=== PATIENT | male | born 1955 ===

== ENCOUNTER 2017-06-10 17:30 | Inpatient (IN) | payer MEDICARE, OTHER ==
[2017-06-10 18:13] VITALS: BMI 28.8
[2017-06-10] MEDS ORDERED: Morphine 4 mg/ml ISec IVP STA ×2 (19:02→23:28)
[2017-06-10 19:40] LABS: ALB/GLOB RATIO 1.5 (1.1-1.8)
[2017-06-10 19:45] LABS: BASO # 0.01 K/mm3 (0.0-2.0); BASO % 0.1 % (0.0-3.0); EOS # 0.1 (0.0-0.7); GRAN # 8.23 (1.4-6.5); GRAN % 77.4 % (50.0-68.0); HEMOGLOBIN 13.1 g/dL (14.0-18.0); LYMPH # 1.6 (1.2-3.4); LYMPH % 15.3 % (22.0-35.0); MEAN CORPUSCULAR HEMOGLOBIN 30.3 pg (25.0-35.0); MEAN CORPUSCULAR HGB CONC 34.4 g/dl (31.0-37.0); MEAN PLATELET VOLUME 10.5 fl (7.0-11.0); MONO # 0.7 (0.1-0.6); MONO % 6.2 % (1.0-6.0); RBC 4.33 10^6/uL (3.5-6.1); RED CELL DISTRIBUTION WIDTH 13.1 % (11.5-14.5); WHITE BLOOD COUNT 10.6 10^3/ul (4.5-11.0)
[2017-06-10 19:48] LABS: ALBUMIN 4.3 g/dL (3.0-4.8); ALT/SGPT 36 U/L (7-56); AST/SGOT 35 U/L (17-59); BLOOD UREA NITROGEN 15 mg/dL (7-21); CALCIUM 9.3 mg/dL (8.4-10.5); GFR AFRICAN-AMERICAN > 60; GFR NON-AFRICAN AMERICAN > 60
[2017-06-10 20:25] LABS: PROTHROMBIN TIME 48.2 SECONDS (9.4-12.5)
[2017-06-10 20:28] LABS: INR 4.11 (0.93-1.08)
[2017-06-10 20:29] LABS: PARTIAL THROMBOPLASTIN TIME 50.9 Seconds (25.1-36.5)
--- NOTE | 2017-06-10 23:28 | ED PDOC ---
Arrival/HPI - General Chief Complaint: Lower Extremity Problem/Injury Time Seen by Provider: 06/10/17 18:08 Historian: Patient - History of Present Illness Narrative History of Present Illness (Text): 06/11/17 01:20 62yr old male on coumadin presents today with a 3 day history of increasing right leg pain and swelling. Patient states he was power washing 3 days ago and when he finished power washing he went inside the house and noticed a slight cramping sensation in the right leg. Patient states yesterday she noticed a small amount of swelling to the knee and some increasing pain over the anterior thigh. Patient states today the swelling has increased and the pain has become even more severe. Patient denies numbness weakness or tingling in the extremity. Patient states he is unable to ambulate and has severe limited range of motion of the right leg from the knee to the hip. Patient states yesterday he was having lots of pain but was able to move the leg at the hip joint. Patient states today he feels as if he can't even move the hip at all. Patient states he gets a shooting pain from the knee all the way up into the thigh and groin. Patient states that her right thigh feels extremely tight and extremely swollen. Patient states he has now noticed ecchymosis along the medial aspect of the thigh. Symptom Onset: Gradual Symptom Course: Worsening Quality: Aching, Stabbing, Throbbing Severity Level: 8 Past Medical History - Provider Review Nursing Documentation Reviewed: Yes - Travel History Have you recently traveled outside [place] w/in the past 3 mons?: No - Infectious Disease Hx of Infectious Diseases: None - Tetanus Immunization Tetanus Immunization: Unknown - Cardiac Hx Cardiac Disorders: Yes (h/o valve replacement ) Hx Hypertension: Yes Other/Comment: Open heart surgery. Cardiac cath with stent placement. Valve replacement - Pulmonary Hx Respiratory Disorders: No - Neurological HX Cerebrovascular Accident: Yes - HEENT Hx HEENT Disorder: No - Renal Hx Renal Disorder: No - Endocrine/Metabolic Hx Endocrine Disorders: No - Hematological/Oncological Hx Blood Disorders: No Hx Blood Transfusions: No - Integumentary Hx Dermatological Disorder: No - Musculoskeletal/Rheumatological Hx Musculoskeletal Disorders: Yes (MILD L SIDED WEAKNESS) - Genitourinary/Gynecological Hx Genitourinary Disorders: No - Psychiatric Hx Psychophysiologic Disorder: No Hx Emotional Abuse: No Hx Physical Abuse: No Hx Substance Use: No - Surgical History Hx Cardiac Catheterization: Yes Hx Open Heart Surgery: Yes - Anesthesia Hx Anesthesia: Yes Hx Anesthesia Reactions: No Hx Malignant Hyperthermia: No - Suicidal Assessment Feels Threatened In Home Enviroment: No Family/Social History - Physician Review Nursing Documentation Reviewed: Yes Family/Social History: Unknown Family HX Smoking Status: Former Smoker Hx Alcohol Use: No Hx Substance Use: No Allergies/Home Meds Allergies/Adverse Reactions: Allergies No Known Allergies Allergy (Verified 04/18/16 23:43) Home Medications: Home Meds Medication Instructions Recorded Confirmed Bisoprolol Fumarate [Zebeta] 10 mg PO QAM 06/15/13 07/06/13 Enalapril Maleate 2.5 mg PO QAM 06/15/13 07/06/13 FLUoxetine [Prozac] 20 mg PO QAM 06/15/13 07/06/13 Febuxostat [Uloric] 40 mg PO DAILY 06/15/13 07/06/13 Fexofenadine HCl [Lulu NF] 180 mg PO QAM 06/15/13 07/06/13 Simvastatin 20 mg PO DAILY 06/15/13 07/06/13 Warfarin Sodium [Coumadin] 4 mg PO Q48H 06/15/13 07/06/13 Review of Systems - Review of Systems Constitutional: absent: Fatigue, Fevers Respiratory: absent: SOB, Cough Cardiovascular: absent: Chest Pain, Palpitations Gastrointestinal: absent: Abdominal Pain, Nausea, Vomiting Genitourinary Male: absent: Dysuria Musculoskeletal: Arthralgias. absent: Back Pain, Neck Pain Skin: absent: Rash, Pruritis Neurological: absent: Headache, Dizziness Psychiatric: absent: Anxiety, Depression, Suicidal Ideation Physical Exam Vital Signs Reviewed: Yes Vital Signs Temp Pulse Resp BP Pulse Ox 06/10/17 18:10 98.0 F 64 18 165/85 H 96 Temperature: Afebrile Blood Pressure: Hypertensive Pulse: Regular Respiratory Rate: Normal Appearance: Positive for: Well-Appearing, Non-Toxic, Uncomfortable Pain Distress: Mild Mental Status: Positive for: Alert and Oriented X 3 - Systems Exam Head: Present: Atraumatic Mouth: Present: Moist Mucous Membranes Respiratory/Chest: Present: Clear to Auscultation Cardiovascular: Present: Regular Rate and Rhythm Abdomen: No: Tenderness, Rebound, Guarding Back: Present: Normal Inspection Upper Extremity: Present: Normal ROM Lower Extremity: Present: NORMAL PULSES, Tenderness (right thigh; there is severe edema and tenderness over the entire right thigh, greatest over the anterior aspect of the thigh. + ecchymosis noted along the medial aspect of the thigh; limited flexion of the hip. pain with flexion of the knee. edema extends for groin/hip to proximal knee; no calf tenderness; sensation and distal pulses intact; cap refill <2. ), Swelling, Neurovascularly Intact, Capillary Refill < 2 s. No: CALF TENDERNESS, Normal ROM, Erythema, Temperature Abnormalties Neurological: Present: GCS=15, Speech Normal Skin: Present: Warm, Dry, Normal Color. No: Rashes Psychiatric: Present: Alert, Oriented x 3 Medical Decision Making ED Course and Treatment: 06/10/17 23:28 62yr old male with right thigh pain and swelling x 3 days. pt with significant pain and swelling to right thigh. neurovascularly intact. cbc; wnl cmp; wnl INR: 4.11 pt seen and evaluated by psychiatry resident: dr garcía. MRI of right leg: FINDINGS: There is diffuse subcutaneous and intermuscular edema throughout the right anteromedial thigh. There is pronounced diffuse edema and enlargement of the right vastus medialis muscle. Within the midportion of the muscle belly, there are multiple adjacent loculated complex fluid collections with internal fluid-fluid levels. In total, these collections measure 4.1 x 7.3 x 11.9 cm. No other focal fluid collection or mass. No visualized tendinous avulsion. No acute right femoral fracture. IMPRESSION: Multiple adjacent loculated complex fluid collections within the midportion of the muscle belly of the right vastus medialis with extensive surrounding intramuscular and soft tissue edema. Differential diagnosis includes abscesses and hematomas. pt was seen and evaluated by dr. christianson; due to bleeding and increasing pain/ swelling and possibility of development of compartment syndrome; dr. christianson states we will given vitamin k now. hold off on FFP and recheck INR in the Am. 10mg vitamin k ordered IV. case discussed with dr. arshad in depth; will consult dr. scales and Dr. Thorne. all results discussed in depth with patient; discussed risks and benefits of vitamin k in depth with patient. all aspects of this case were discussed the attending of record. impression; hematoma, leg admit to tele - Lab Interpretations Lab Results: 06/10/17 19:10 06/10/17 19:10 Lab Results 06/10/17 19:10: PT 48.2 H, INR 4.11 H*, APTT 50.9 H 06/10/17 19:10: WBC 10.6 D, RBC 4.33, Hgb 13.1 L, Hct 38.1 L, MCV 88.0, MCH 30.3, MCHC 34.4, RDW 13.1, Plt Count 214, MPV 10.5, Gran % 77.4 H, Lymph % (Auto ) 15.3 L, Petroleum % (Auto) 6.2 H, Eos % (Auto) 1.0 L, Baso % (Auto) 0.1, Gran # 8.23 H, Lymph # (Auto) 1.6, Petroleum # (Auto) 0.7 H, Eos # (Auto) 0.1, Baso # (Auto ) 0.01 06/10/17 19:10: Sodium 140, Potassium 4.5, Chloride 98, Carbon Dioxide 29, Anion Gap 17, BUN 15, Creatinine 0.8, Est GFR ( Amer) > 60, Est GFR (Non- Af Amer) > 60, Random Glucose 115 H, Calcium 9.3, Total Bilirubin 0.3, AST 35, ALT 36, Alkaline Phosphatase 68, Total Protein 7.1, Albumin 4.3, Globulin 2.8, Albumin/Globulin Ratio 1.5 - RAD Interpretation Radiology Orders: 06/10/17 19:01 DUPLEX LOWER EXTRM VEIN RIGHT [US] Stat 06/10/17 19:04 LOWER EXT OTH THN JNT W/O RT [MRI] Stat 06/10/17 19:07 CHEST PORTABLE [RAD] Stat - Medication Orders Current Medication Orders: Discontinued Medications Phytonadione 10 mg/ Sodium (Chloride) 51 mls @ 100 mls/hr IV ONCE ONE Stop: 06/11/17 01:22 Last Admin: 06/11/17 01:28 Dose: 100 mls/hr eMAR Start Stop Document 06/11/17 01:28 SS (Rec: 06/11/17 01:29 SS [facility] [place]-[id number]) Intravenous Solution Start Date 06/11/17 Start Time 01:29 End Date 06/11/17 End time 02:00 Total Infusion Time 31 Morphine Sulfate (Morphine) 2 mg IVP STAT STA Stop: 06/10/17 23:29 Last Admin: 06/10/17 23:42 Dose: 2 mg MAR Pain Assessment Document 06/10/17 23:42 SS (Rec: 06/10/17 23:43 SS [facility] [id number] Pain Reassessment Is this a pain reassessment? No Sleep Is patient sleeping during reassessment? No Presence of Pain Presence of Pain Yes Pain Scale Used Pain Scale Used Numeric Location Left, Right or Bilateral Right Pain Location Body Site Leg IVP Administration Document 06/10/17 23:42 SS (Rec: 06/10/17 23:43 SS [facility] [id number]) Charges for Administration # of IVP Administrations 1 Disposition/Present on Arrival - Present on Arrival Any Indicators Present on Arrival: No History of DVT/PE: No History of Uncontrolled Diabetes: No Urinary Catheter: No History of Decub. Ulcer: No History Surgical Site Infection Following: None - Disposition Have Diagnosis and Disposition been Completed?: Yes Diagnosis: Hematoma of leg Disposition: HOSPITALIZED Disposition Time: 01:00 Patient Plan: Admission Patient Problems: Current Active Problems Problem Status Onset Hematoma of leg Acute Condition: FAIR
--- NOTE | 2017-06-10 23:49 | CP.PCM.CON ---
History of Present Illness - History of Present Illness History of Present Illness: Surgery: Dr. Thorne CC: R leg pain HPI: 62M w. pmh of HTN, hypercholesterolemia, aortic valve replacement on coumadin presents w. R thigh pain x 2 days. Pt states that he was doing power washing 2 days ago. There was no fall or trauma. However, soon after he began to experience progressive pain and swelling in the R thigh. Pain is described as burning, it is worse with weight bearing activity and motion. He states that pain today prevented him from ambulating. INR in ED was 4.11 and MRI showed multiple loculated collections concerning for abscess or hematoma. PMH: see above PSH: Aortic valve replacement Meds: MAR reviewed NKDA Social: Former smoker, no ETOH/drugs Fhx: non-contributory Review of Systems - Review of Systems All systems: reviewed and no additional remarkable complaints except (HPI) Past Patient History - Infectious Disease Hx of Infectious Diseases: None - Past Social History Smoking Status: Former Smoker - CARDIAC Hx Cardiac Disorders: Yes (h/o valve replacement ) Hx Hypertension: Yes Other/Comment: Open heart surgery. Cardiac cath with stent placement. Valve replacement - PULMONARY Hx Respiratory Disorders: No - NEUROLOGICAL HX Cerebrovascular Accident: Yes - HEENT Hx HEENT Problems: No - RENAL Hx Chronic Kidney Disease: No - ENDOCRINE/METABOLIC Hx Endocrine Disorders: No - HEMATOLOGICAL/ONCOLOGICAL Hx Blood Disorders: No Hx Blood Transfusions: No - INTEGUMENTARY Hx Dermatological Problems: No - MUSCULOSKELETAL/RHEUMATOLOGICAL Hx Musculoskeletal Disorders: Yes (MILD L SIDED WEAKNESS) - GENITOURINARY/GYNECOLOGICAL Hx Genitourinary Disorders: No - PSYCHIATRIC Hx Psychophysiologic Disorder: No Hx Emotional Abuse: No Hx Physical Abuse: No Hx Substance Use: No - SURGICAL HISTORY Hx Cardiac Catheterization: Yes Hx Open Heart Surgery: Yes - ANESTHESIA Hx Anesthesia: Yes Hx Anesthesia Reactions: No Hx Malignant Hyperthermia: No Meds Allergies/Adverse Reactions: Allergies Allergy/AdvReac Type Severity Reaction Status Date / Time No Known Allergies Allergy Verified 04/18/16 23:43 Physical Exam - Constitutional Appears: Non-toxic, No Acute Distress - Head Exam Head Exam: ATRAUMATIC, NORMOCEPHALIC - Eye Exam Eye Exam: EOMI - ENT Exam ENT Exam: Mucous Membranes Moist, Normal External Ear Exam - Respiratory Exam Respiratory Exam: NORMAL BREATHING PATTERN. absent: Accessory Muscle Use, Respiratory Distress - GI/Abdominal Exam GI & Abdominal Exam: Soft. absent: Tenderness - Extremities Exam Additional comments: R thigh swollen, tender to palpation, no erythema, anterior compartment firm, decreased ROM 2/2 pain, distal pulses palpable, sensation and motor fxn intact Results - Vital Signs Recent Vital Signs: Last Vital Signs Temp 98.0 F 06/10/17 18:10 Pulse 64 06/10/17 18:10 Resp 18 06/10/17 18:10 BP 165/85 H 06/10/17 18:10 Pulse Ox 96 06/10/17 18:10 - Labs Result Diagrams: 06/10/17 19:10 06/10/17 19:10 Labs: Laboratory Results - last 24 hr 06/10/17 06/10/17 06/10/17 19:10 19:10 19:10 WBC 10.6 D RBC 4.33 Hgb 13.1 L Hct 38.1 L MCV 88.0 MCH 30.3 MCHC 34.4 RDW 13.1 Plt Count 214 MPV 10.5 Gran % 77.4 H Lymph % (Auto) 15.3 L Mcclain % (Auto) 6.2 H Eos % (Auto) 1.0 L Baso % (Auto) 0.1 Gran # 8.23 H Lymph # (Auto) 1.6 Mcclain # (Auto) 0.7 H Eos # (Auto) 0.1 Baso # (Auto) 0.01 PT 48.2 H INR 4.11 H* APTT 50.9 H Sodium 140 Potassium 4.5 Chloride 98 Carbon Dioxide 29 Anion Gap 17 BUN 15 Creatinine 0.8 Est GFR ( Amer) > 60 Est GFR (Non-Af Amer) > 60 Random Glucose 115 H Calcium 9.3 Total Bilirubin 0.3 AST 35 ALT 36 Alkaline Phosphatase 68 Total Protein 7.1 Albumin 4.3 Globulin 2.8 Albumin/Globulin Ratio 1.5 Assessment & Plan - Assessment and Plan (Free Text) Assessment: 62M w. R thigh pain, likely hematoma Plan: -MRI reviewed -elevate R leg -warm compress to thigh -monitor compartments, no concern for compartment syndrome at this time -If symptoms worsen, would recommend reversing INR -d/w attending Seth PGY3
[2017-06-11] MEDS ORDERED: Phytonadione 10 MG in Sodium Chloride 0.9% 50 ML IV ONE (00:52)
[2017-06-11] MEDS ORDERED: Oxycodone/Acetaminophen 5/325 mg Tab PO PRN (08:06)
--- NOTE | 2017-06-11 08:12 | CP.PCM.PN ---
Subjective - Date & Time of Evaluation Date of Evaluation: 06/11/17 Time of Evaluation: 08:08 - Subjective Subjective: Surgery Progress Note: Patient seen and assessed at bedside. No acute events overnight. Pain improved overnight. Denies fevers, chills, chest pain, SOB, abdominal pain, N/V/D/C, changes in urine output or any new skin changes. Objective - Vital Signs/Intake and Output Vital Signs (last 24 hours): Temp Pulse Resp BP Pulse Ox 97.7 F 80 18 159/82 H 96 06/11/17 05:55 06/11/17 05:55 06/11/17 05:55 06/11/17 05:55 06/11/17 05:55 - Medications Medications: Current Medications Oxycodone/Acetaminophen (Percocet 5/325 Mg Tab) 1 tab PO Q6H PRN PRN Reason: Pain, severe (8-10) Stop: 06/14/17 08:07 - Labs Labs: PT 48.2 SECONDS (9.4-12.5) H 06/10/17 19:10 INR 4.11 (0.93-1.08) H* 06/10/17 19:10 APTT 50.9 Seconds (25.1-36.5) H 06/10/17 19:10 - Constitutional Appears: Non-toxic, No Acute Distress - Head Exam Head Exam: ATRAUMATIC, NORMOCEPHALIC - Eye Exam Eye Exam: EOMI, Normal appearance - Neck Exam Neck Exam: Full ROM - Respiratory Exam Respiratory Exam: NORMAL BREATHING PATTERN. absent: Accessory Muscle Use, Respiratory Distress - GI/Abdominal Exam GI & Abdominal Exam: Soft, Normal Bowel Sounds. absent: Tenderness - Extremities Exam Extremities Exam: Normal Capillary Refill, Tenderness. absent: Calf Tenderness , Full ROM (Limited active and passive flexion of RLE), Normal Inspection, Pedal Edema Additional comments: Right thigh TTP with associated swelling; No surrounding erythema or skin changes; Distal pulses palpable with motor and sensory function intact in RLE - Neurological Exam Neurological Exam: Alert, Awake, Oriented x3 - Psychiatric Exam Psychiatric exam: Normal Affect, Normal Mood - Skin Skin Exam: Dry, Warm Assessment and Plan - Assessment and Plan (Free Text) Assessment: 62 year old male on coumadin who presented with right thigh pain, likely secondary to hematoma Plan: -Continue warm compresses and extremity elevation -Continue to monitor compartments; No concern for compartment syndrome at this time -If symptoms worsen, would recommend reversing INR -Will discuss with attending, Dr. Mati Navarrete PGY1
--- NOTE | 2017-06-11 08:31 | RAD ---
HISTORY: right leg pain/swelling COMPARISON: 04/19/2016. FINDINGS: LUNGS: The lungs are well inflated and clear. PLEURA: No significant pleural effusion identified, no pneumothorax apparent. CARDIOVASCULAR: The heart is normal in size. Status post median sternotomy. OSSEOUS STRUCTURES: No significant abnormalities. VISUALIZED UPPER ABDOMEN: Normal. OTHER FINDINGS: None. IMPRESSION: No active pulmonary disease.
[2017-06-11 09:07] LABS: HEMOGLOBIN 12.4 g/dL (14.0-18.0); MEAN CELL VOLUME 88.3 fl (80.0-105.0); MEAN CORPUSCULAR HEMOGLOBIN 30.3 pg (25.0-35.0); MEAN CORPUSCULAR HGB CONC 34.3 g/dl (31.0-37.0); RBC 4.09 10^6/uL (3.5-6.1); RED CELL DISTRIBUTION WIDTH 13.2 % (11.5-14.5); WHITE BLOOD COUNT 9.1 10^3/ul (4.5-11.0)
[2017-06-11 09:16] LABS: ALB/GLOB RATIO 1.5 (1.1-1.8); ALBUMIN 4.1 g/dL (3.0-4.8); ALT/SGPT 35 U/L (7-56); AST/SGOT 36 U/L (17-59); BLOOD UREA NITROGEN 17 mg/dL (7-21); GFR AFRICAN-AMERICAN > 60; GFR NON-AFRICAN AMERICAN > 60; URIC ACID 3.3 mg/dL (3.5-8.5)
[2017-06-11 09:35] LABS: INR 1.65 (0.93-1.08); PROTHROMBIN TIME 19.2 SECONDS (9.4-12.5)
[2017-06-11] MEDS: Febuxostat [Uloric] 40 MG (HOME MED) PO SCH (09:53)
[2017-06-11] MEDS ORDERED: BISOPROLOL FUMARATE 10 MG PO SCH (10:00)
--- NOTE | 2017-06-11 14:28 | US ---
PROCEDURE: Right lower extremity venous US HISTORY: Leg pain and swelling. Evaluate for DVT. PHYSICIAN(S): Mykel Gross M.D. TECHNIQUE: Duplex sonography and color-flow Doppler with graded compression were used to evaluate the deep venous system of the right lower extremity. The exam is very limited by edema and body habitus. FINDINGS: The visualized deep venous system of the right lower extremity is sonographically normal and compressible. Normal waveforms and augmentation are seen. There is no sonographic evidence for deep venous thrombosis in the visualized segments of the right lower extremity. IMPRESSION: 1. No sonographic evidence for deep venous thrombosis in the visualized segments of the right lower extremity. 2. Limited study.
--- NOTE | 2017-06-11 18:46 | MRI ---
PROCEDURE: RIGHT THIGH MRI WITHOUT CONTRAST HISTORY: right thigh pain/swelling extending from hip-knee COMPARISON: No prior comparison available. TECHNIQUE: An MR examination of right thigh zone performed using multiplanar multisequential technique from the level of the right hip joint to the distal right femoral metaphysis. Intravenous gadolinium was not administered. FINDINGS: Diffuse subcutaneous/ intramuscular edema is appreciate the at the anteromedial right thigh with increased volume of the vastus medialis muscle identified which includes numerous cystic collections at the proximal to mid thigh level with fluid-fluid levels contained internally. The largest measures 3.9 x 4.9 x 6.5 cm (traverse by anteroposterior by superoinferior dimensions). These are suggestive of multiple hematomas at various stages of blood product degradation. Differential diagnosis consists of abscesses. The aggregate of these collections measures 4.3 x 7.3 x 11.9 cm. Edematous changes are seen within the proximal segment of the sartorius muscle as well, compatible with tear. Additional edema is is seen within the adductor longus and adductor brevis muscles at their proximal to mid extent which are both surrounded by fluid more so proximally than at the mid segments. The right femur appears intact without definite fracture. No visualized tendinous avulsion or tear is appreciated grossly although the right hip and right knee joints are not completely included in this examination. IMPRESSION: Findings most compatible with likely tear traverses severe sprains of the vastus medialis and sartorius muscles, though sartorius [id number] affected. Additional tear or split severe sprains effect the adductor longus and brevis muscles. In aggregate of fluid collections in the proximal vastus medialis muscle suggests multiple hematomas though abscesses are not completely excluded and further clinical correlation is advised. Consider follow-up right hip and knee MR examinations. Concordant preliminary report from [facility], 06/10/2017.
[2017-06-11 20:09] LABS: BASO # 0.02 K/mm3 (0.0-2.0); BASO % 0.2 % (0.0-3.0); EOS # 0.1 (0.0-0.7); EOS % 1.1 % (1.5-5.0); GRAN # 5.94 (1.4-6.5); GRAN % 70.2 % (50.0-68.0); HEMOGLOBIN 11.9 g/dL (14.0-18.0); LYMPH # 1.5 (1.2-3.4); LYMPH % 17.8 % (22.0-35.0); MEAN CORPUSCULAR HEMOGLOBIN 30.3 pg (25.0-35.0); MEAN CORPUSCULAR HGB CONC 34.4 g/dl (31.0-37.0); MONO # 0.9 (0.1-0.6); MONO % 10.7 % (1.0-6.0); RBC 3.93 10^6/uL (3.5-6.1); WHITE BLOOD COUNT 8.5 10^3/ul (4.5-11.0)
--- NOTE | 2017-06-11 21:34 | CARD ---
APPROVED REPORT EKG Measurement Heart [id number] <Conclusion> Normal sinus rhythm Nonspecific T wave abnormality Abnormal ECG
--- NOTE | 2017-06-11 23:34 | HP ---
HISTORY OF PRESENT ILLNESS: The patient is 62 years old, known to me from previous admission. He states on Saturday, he went to see his son, who was power washing his backyard [place] and he happened to help him. He was in his feet. That same evening, when they were having dinner, he felt a little discomfort behind his left thigh. He just ignored. When he came home next day, his thigh and right knee was hurting and thought he was going to get better, but yesterday afternoon, he noticed the swelling is increasing and he has difficulty bending his knees, so he came to emergency room for further evaluation. Denies any fever or chills. No history of nausea or vomiting. No history of fall. No history of trauma to the area, having difficulty bending right knee. PAST MEDICAL HISTORY: Significant for: 1. Aortic valve replacement. 2. History of CVA in the past, almost 20 years ago, status post open heart surgery for aortic valve placement. 3. History of gout. 4. Hyperlipidemia. ALLERGIES: NOT ALLERGIC TO ANY MEDICATION. MEDICATIONS AT HOME: He is on Coumadin 3 mg alternating with 6 mg, 40 mg daily, Prozac 20 mg daily, enalapril 2.5 mg daily, Plavix 75 mg daily, bisoprolol 10 mg daily. SOCIAL HISTORY: He is . He has 3 grown up children. He used to be very heavy smoker, but quit when he had stroke 20 years ago. PHYSICAL EXAMINATION: GENERAL: He is awake, alert, oriented, communicative. VITAL SIGNS: He is afebrile, pulse 92, respirations 20, blood pressure 154/93. LUNGS: Bilateral good airflow. No rhonchi or crackle. HEART: S1 and S2 audible. ABDOMEN: Soft, nontender. No rebound, no guarding. NEUROLOGIC: He is awake and alert, able to communicate. EXTREMITIES: Has difficulty moving right knee, has difficulty bending and flexing and tender to touch. No erythema. LABORATORY DATA: WBC is 9.1, hemoglobin 12.4, hematocrit 36, platelet of 193. PT 19.2, INR 1.65. Chemistry: Sodium 137, potassium 4.2, chloride 96, CO2 33, BUN 17, creatinine 0.9, blood sugar 178. Uric acid is 3.3. He had MRI of lower extremity, official report is not available, however, verbal report shows multiple loculations, probably loculated hematoma. ASSESSMENT AND PLAN: 1. Right thigh swelling, secondary to hematoma. 2. History of mechanical valve replacement because of aortic stenosis. 3. History of gout. PLAN: Keep his leg elevated. Watch for compartment syndrome and give small dose of 4 mg of Coumadin, 2 mg of Coumadin today. Monitor his PT and INR in a.m., Monitor his CBC in a.m. Brayden Nelson MD
[2017-06-12 01:04] LABS: BASO # 0.02 K/mm3 (0.0-2.0); BASO % 0.2 % (0.0-3.0); EOS # 0.1 (0.0-0.7); EOS % 1.2 % (1.5-5.0); GRAN # 6.56 (1.4-6.5); GRAN % 66.6 % (50.0-68.0); HEMOGLOBIN 12.1 g/dL (14.0-18.0); LYMPH # 2.1 (1.2-3.4); MEAN CELL VOLUME 88.4 fl (80.0-105.0); MEAN CORPUSCULAR HEMOGLOBIN 30.6 pg (25.0-35.0); MEAN CORPUSCULAR HGB CONC 34.6 g/dl (31.0-37.0); MEAN PLATELET VOLUME 9.8 fl (7.0-11.0); MONO # 1.1 (0.1-0.6); RBC 3.96 10^6/uL (3.5-6.1); RED CELL DISTRIBUTION WIDTH 13.2 % (11.5-14.5); WHITE BLOOD COUNT 9.9 10^3/ul (4.5-11.0)
[2017-06-12 06:52] LABS: BASO # 0.03 K/mm3 (0.0-2.0); BASO % 0.3 % (0.0-3.0); EOS # 0.1 (0.0-0.7); EOS % 1.5 % (1.5-5.0); GRAN # 5.91 (1.4-6.5); GRAN % 65.3 % (50.0-68.0); LYMPH # 2.1 (1.2-3.4); LYMPH % 23.1 % (22.0-35.0); MEAN CELL VOLUME 88.6 fl (80.0-105.0); MEAN CORPUSCULAR HEMOGLOBIN 29.9 pg (25.0-35.0); MEAN CORPUSCULAR HGB CONC 33.7 g/dl (31.0-37.0); MEAN PLATELET VOLUME 10.4 fl (7.0-11.0); MONO # 0.9 (0.1-0.6); MONO % 9.8 % (1.0-6.0); RBC 4.02 10^6/uL (3.5-6.1); RED CELL DISTRIBUTION WIDTH 13.3 % (11.5-14.5); WHITE BLOOD COUNT 9.1 10^3/ul (4.5-11.0)
[2017-06-12 07:18] LABS: INR 1.26 (0.93-1.08); PROTHROMBIN TIME 14.6 SECONDS (9.4-12.5)
[2017-06-12] MEDS: Febuxostat [Uloric] 40 MG (HOME MED) PO SCH (09:29)
--- NOTE | 2017-06-12 10:36 | CP.PCM.PN ---
Subjective - Date & Time of Evaluation Date of Evaluation: 06/12/17 Time of Evaluation: 10:33 - Subjective Subjective: Surgery Progress Note: Patient seen and assessed at bedside. No acute events overnight. Pain improved overnight and patient reports that his leg feels softer. He denies fevers, chills, chest pain, SOB, abdominal pain, N/V/D/C, changes in urine output, any new skin changes or numbness/tingling of any extremity. Objective - Vital Signs/Intake and Output Vital Signs (last 24 hours): Temp Pulse Resp BP Pulse Ox 97.8 F 80 20 137/73 97 06/12/17 06:00 06/12/17 09:30 06/12/17 06:00 06/12/17 09:30 06/12/17 06:00 Intake and Output: 06/12/17 06/12/17 06:59 18:59 Intake Total 800 Balance 800 - Medications Medications: Current Medications Atorvastatin Calcium (Lipitor) 10 mg PO DIN [facility] Last Admin: 06/11/17 16:25 Dose: 10 mg Fluoxetine HCl (Prozac) 20 mg PO QAM [facility] Last Admin: 06/12/17 09:30 Dose: 20 mg Loratadine (Claritin) 10 mg PO DAILY [facility] Last Admin: 06/12/17 09:29 Dose: 10 mg Metoprolol Tartrate (Lopressor) 25 mg PO BID [facility] Last Admin: 06/12/17 09:30 Dose: 25 mg Febuxostat [Uloric] (40 Mg (Home Med)) 40 mg PO DAILY [facility] Last Admin: 06/12/17 09:29 Dose: Not Given Oxycodone/Acetaminophen (Percocet 5/325 Mg Tab) 1 tab PO Q6H PRN PRN Reason: Pain, severe (8-10) Stop: 06/14/17 08:07 Last Admin: 06/11/17 12:44 Dose: 1 tab Warfarin Sodium (Coumadin) 3 mg PO 1800 [facility] PRN Reason: Protocol Last Admin: 06/11/17 17:56 Dose: 3 mg - Labs Labs: 06/12/17 06:30 06/11/17 09:00 PT 14.6 SECONDS (9.4-12.5) H 06/12/17 06:30 INR 1.26 (0.93-1.08) H 06/12/17 06:30 APTT 50.9 Seconds (25.1-36.5) H 06/10/17 19:10 - Constitutional Appears: Non-toxic, No Acute Distress - Head Exam Head Exam: ATRAUMATIC, NORMOCEPHALIC - Eye Exam Eye Exam: EOMI, Normal appearance - Neck Exam Neck Exam: Full ROM - Respiratory Exam Respiratory Exam: NORMAL BREATHING PATTERN. absent: Accessory Muscle Use, Respiratory Distress - GI/Abdominal Exam GI & Abdominal Exam: Soft, Normal Bowel Sounds. absent: Tenderness - Extremities Exam Extremities Exam: absent: Calf Tenderness, Joint Swelling, Pedal Edema, Tenderness Additional comments: Right thigh swelling with noted interval improvement; No surrounding erythema or skin changes; Distal pulses palpable with motor and sensory function intact in RLE - Neurological Exam Neurological Exam: Alert, Awake, Oriented x3 - Psychiatric Exam Psychiatric exam: Normal Affect, Normal Mood - Skin Skin Exam: Dry, Intact, Normal Color, Warm Assessment and Plan - Assessment and Plan (Free Text) Assessment: 62 year old male on coumadin who presented with right thigh pain, likely secondary to hematoma Plan: -Thigh high compression stockings -Continue warm compresses and extremity elevation -Continue to monitor compartments; No concern for compartment syndrome at this time -From a surgical perspective, patient can resume Coumadin but recommend strict control and monitoring of INR -Discussed with attending, Dr. Mati Navarrete PGY1
[2017-06-12 12:24] LABS: BASO # 0.02 K/mm3 (0.0-2.0); BASO % 0.2 % (0.0-3.0); EOS # 0.2 (0.0-0.7); EOS % 1.9 % (1.5-5.0); GRAN # 5.42 (1.4-6.5); GRAN % 65.3 % (50.0-68.0); HEMOGLOBIN 11.8 g/dL (14.0-18.0); LYMPH # 1.9 (1.2-3.4); LYMPH % 22.4 % (22.0-35.0); MEAN CELL VOLUME 88.9 fl (80.0-105.0); MEAN CORPUSCULAR HEMOGLOBIN 29.8 pg (25.0-35.0); MEAN CORPUSCULAR HGB CONC 33.5 g/dl (31.0-37.0); MONO # 0.9 (0.1-0.6); MONO % 10.2 % (1.0-6.0); RBC 3.96 10^6/uL (3.5-6.1); RED CELL DISTRIBUTION WIDTH 13.2 % (11.5-14.5); WHITE BLOOD COUNT 8.3 10^3/ul (4.5-11.0)
--- NOTE | 2017-06-12 14:50 | PN ---
DATE: HISTORY OF PRESENT ILLNESS: The patient is 62-year-old, seen and examined, lying in bed, seems to be comfortable. No nausea or vomiting, no diarrhea. He is stating his swelling is better. Pain is still there, unable to flex his knee. PHYSICAL EXAMINATION VITAL SIGNS: He is afebrile, pulse 75, respirations 20, blood pressure 135/91. LUNGS: Bilateral good airflow. No rhonchi or crackle. HEART: S1 and S2 audible. ABDOMEN: Soft, nontender. No rebound, no guarding. NEUROLOGIC: He is awake, alert, oriented. EXTREMITIES: He has swelling on the medial aspect of the right knee and his thigh area is relatively less tender, but still swollen. LABORATORY DATA: WBC is 8.3, hemoglobin 11.8, hematocrit 35.2, platelet of 228. His PT is 14.6, INR 1.26. Chemistry: Sodium 137, potassium 4.2, chloride 96, CO2 33, BUN 17, creatinine 0.9, blood sugar of 178. ASSESSMENT AND PLAN 1. Right thigh hematoma. 2. History of aortic valve replacement with mechanical valve. 3. History of gout. 4. Supratherapeutic PT/INR and was given vitamin K in the ER. PLAN: We will give 6 mg of Coumadin today. We will give him a dose of Lovenox since he has mechanical valve if okay with Surgery and start putting him on Khai bandage with external pressure and out of bed to chair. Start him on physical therapy and we will follow up his PT/INR in the a.m. Brayden Nelson MD
[2017-06-13 07:16] LABS: BASO # 0.02 K/mm3 (0.0-2.0); BASO % 0.3 % (0.0-3.0); EOS # 0.2 (0.0-0.7); EOS % 3.4 % (1.5-5.0); GRAN # 4.41 (1.4-6.5); GRAN % 62.1 % (50.0-68.0); HEMOGLOBIN 11.6 g/dL (14.0-18.0); LYMPH # 1.8 (1.2-3.4); LYMPH % 25.2 % (22.0-35.0); MEAN CELL VOLUME 89.1 fl (80.0-105.0); MEAN CORPUSCULAR HGB CONC 33.6 g/dl (31.0-37.0); MEAN PLATELET VOLUME 10.2 fl (7.0-11.0); MONO # 0.6 (0.1-0.6); RBC 3.87 10^6/uL (3.5-6.1); RED CELL DISTRIBUTION WIDTH 13.4 % (11.5-14.5); WHITE BLOOD COUNT 7.1 10^3/ul (4.5-11.0)
--- NOTE | 2017-06-13 07:22 | CP.PCM.PN ---
Subjective - Date & Time of Evaluation Date of Evaluation: 06/13/17 Time of Evaluation: 07:19 - Subjective Subjective: Surgery Progress Note: Patient seen and assessed at bedside. No acute events overnight. Pain and ROM improved. He denies fevers, chills, chest pain, SOB, abdominal pain, N/V/D/C, changes in urine output, any new skin changes or numbness/tingling of any extremity. Objective - Vital Signs/Intake and Output Vital Signs (last 24 hours): Temp Pulse Resp BP Pulse Ox 97.3 F L 68 20 133/81 94 L 06/13/17 05:41 06/13/17 05:41 06/13/17 05:41 06/13/17 05:41 06/13/17 05:41 Intake and Output: 06/13/17 06/13/17 06:59 18:59 Intake Total 480 Balance 480 - Medications Medications: Current Medications Atorvastatin Calcium (Lipitor) 10 mg PO DIN [facility] Last Admin: 06/12/17 17:30 Dose: 10 mg Fluoxetine HCl (Prozac) 20 mg PO QAM [facility] Last Admin: 06/12/17 09:30 Dose: 20 mg Loratadine (Claritin) 10 mg PO DAILY [facility] Last Admin: 06/12/17 09:29 Dose: 10 mg Metoprolol Tartrate (Lopressor) 25 mg PO BID [facility] Last Admin: 06/12/17 17:30 Dose: 25 mg Febuxostat [Uloric] (40 Mg (Home Med)) 40 mg PO DAILY [facility] Last Admin: 06/12/17 09:29 Dose: Not Given Oxycodone/Acetaminophen (Percocet 5/325 Mg Tab) 1 tab PO Q6H PRN PRN Reason: Pain, severe (8-10) Stop: 06/14/17 08:07 Last Admin: 06/11/17 12:44 Dose: 1 tab Warfarin Sodium (Coumadin) 6 mg PO 1800 [facility] PRN Reason: Protocol Last Admin: 06/12/17 17:29 Dose: 6 mg - Labs Labs: 06/12/17 12:00 06/11/17 09:00 PT 14.6 SECONDS (9.4-12.5) H 06/12/17 06:30 INR 1.26 (0.93-1.08) H 06/12/17 06:30 APTT 50.9 Seconds (25.1-36.5) H 06/10/17 19:10 - Constitutional Appears: Non-toxic, No Acute Distress - Head Exam Head Exam: ATRAUMATIC, NORMOCEPHALIC - Eye Exam Eye Exam: EOMI, Normal appearance - ENT Exam ENT Exam: Mucous Membranes Moist - Neck Exam Neck Exam: Full ROM - Respiratory Exam Respiratory Exam: NORMAL BREATHING PATTERN. absent: Accessory Muscle Use, Respiratory Distress - GI/Abdominal Exam GI & Abdominal Exam: Soft. absent: Distended, Firm, Guarding, Rigid, Tenderness , Normal Bowel Sounds, Rebound - Extremities Exam Extremities Exam: absent: Calf Tenderness, Full ROM (Limited hip flexion d/t pain), Joint Swelling, Pedal Edema Additional comments: Right thigh swelling with noted interval improvement; No surrounding erythema or skin changes; Distal pulses palpable with motor and sensory function intact in RLE - Neurological Exam Neurological Exam: Alert, Awake, Oriented x3 - Psychiatric Exam Psychiatric exam: Normal Affect, Normal Mood - Skin Skin Exam: Dry, Intact, Normal Color, Warm Assessment and Plan - Assessment and Plan (Free Text) Assessment: 62 year old male on coumadin who presented with right thigh pain, likely secondary to hematoma Plan: -Thigh high compression stockings -Continue warm compresses and extremity elevation -Continue to monitor compartments; No concern for compartment syndrome at this time -From a surgical perspective, patient can resume Coumadin but recommend strict control and monitoring of INR -PT/OT Evaluation and Treatment -Discussed with attending, Dr. Mati Navarrete PGY1
[2017-06-13 07:28] LABS: INR 1.2 (0.93-1.08); PROTHROMBIN TIME 13.8 SECONDS (9.4-12.5)
--- NOTE | 2017-06-13 08:32 | CON ---
DATE: 06/12/2017 LOCATION: Room 268, bed 2. HISTORY OF PRESENT ILLNESS: Patient came into the hospital on 06/10/2017 in the evening. He has been on Coumadin and has extreme swelling and pain of his right thigh, admitted for a rule out compartment syndrome. Patient is on Coumadin for heart disease. He was outside doing some power wash on the day of the injury and had a mechanical disruption and overuse of the muscles of his right thigh and it started to swell. He had some ecchymoses on the medial thigh. But today when I see him which is two days later, the swelling is much less. There is no neurologic deficit. He had some mild effusion of the left leg that was probably activated by STU bandage on the right thigh, and the right knee was swollen. The STU bandage probably made it worse that was put on the right thigh. So I removed that and he has a resulting hematoma of the right thigh and the right knee. So I would not ask for anything at this time. There are no signs of infection. I am going to start physical therapy. He could do a straight leg raising, so his quadriceps and hamstrings are working good and his patellar tendon is intact. We will just give him strengthening exercises to do home exercise, range of motion, and when the pool opens up in the summer, he could go in the water. But there is no need for surgical intervention other than let the hematoma in his right thigh and hematosis of the right knee resolve spontaneously, and I can always see him in the office if any swelling occurs, but there are no signs of arthritis either. FINAL DIAGNOSES: Coagulopathy from too much Coumadin and a resolving hematoma of his right thigh. We are going to do conservative therapy with range of motion and ambulation with a cane. Rosalino Gordon DO
[2017-06-13] MEDS: Febuxostat [Uloric] 40 MG (HOME MED) PO SCH (09:13)
[2017-06-13] MEDS: Enoxaparin 40 mg Syringe SC SCH (14:12)
--- NOTE | 2017-06-13 15:02 | PN ---
DATE: SUBJECTIVE: Patient is 62 years old, seen and examined, lying in bed, seems to be comfortable. He said he still has lot of pain in the right thigh, able to bend knee somewhat.. PHYSICAL EXAMINATION: VITAL SIGNS: He is afebrile. Pulse 82, respirations 16, blood pressure 150/89. LUNGS: Bilateral good airflow. No rhonchi or crackles. HEART: S1, S2 audible. ABDOMEN: Soft, nontender. No rebound. No guarding. NEUROLOGIC: He is awake, alert, oriented, communicative. EXTREMITIES: Right leg, he has bruise on the upper thigh extending towards the groin. His knee swelling has improved somewhat. Distal pulses are intact. LABORATORY DATA: WBC 7.1, hemoglobin 11.6, hematocrit 34.5, and platelets of 236. PT 13.8, INR 1. Chemistry: Sodium 137, potassium 4.2, chloride 96, CO2 of 33. BUN 17, creatinine 0.9. Blood sugar of 178. ASSESSMENT: 1. Right thigh hematoma. 2. Status post supratherapeutic INR. 3. Status post aortic valve replacement, mechanical valve. 4. History of gout. PLAN: We will give him 10 mg of Coumadin today. I will give him one dose of 40 mg of Lovenox. We will follow up his PT and INR in the a.m. Brayden Nelson MD
[2017-06-14 08:33] LABS: BASO # 0.02 K/mm3 (0.0-2.0); BASO % 0.3 % (0.0-3.0); EOS # 0.3 (0.0-0.7); EOS % 4.3 % (1.5-5.0); GRAN # 4.55 (1.4-6.5); GRAN % 62.7 % (50.0-68.0); HEMOGLOBIN 11.5 g/dL (14.0-18.0); LYMPH # 1.8 (1.2-3.4); LYMPH % 24.7 % (22.0-35.0); MEAN CORPUSCULAR HGB CONC 33.7 g/dl (31.0-37.0); MEAN PLATELET VOLUME 9.4 fl (7.0-11.0); MONO # 0.6 (0.1-0.6); RBC 3.83 10^6/uL (3.5-6.1); RED CELL DISTRIBUTION WIDTH 13.2 % (11.5-14.5); WHITE BLOOD COUNT 7.3 10^3/ul (4.5-11.0)
[2017-06-14 08:58] LABS: INR 1.39 (0.93-1.08); PROTHROMBIN TIME 16.1 SECONDS (9.4-12.5)
[2017-06-14] MEDS: Enoxaparin 40 mg Syringe SC SCH (10:01)
[2017-06-14] MEDS: Febuxostat [Uloric] 40 MG (HOME MED) PO SCH (10:02)
--- NOTE | 2017-06-14 12:21 | PN ---
DATE: SUBJECTIVE: The patient is a 62-year-old [place] male, seen and examined, lying in bed. Still complaining of soreness, pain in the right thigh. Swelling seems to be improving. No fever. No chills. No nausea or vomiting. No diarrhea. PHYSICAL EXAMINATION: VITAL SIGNS: The patient is afebrile, pulse 80, respirations 20, blood pressure 150/88. LUNGS: Bilateral good airflow. No rhonchi or crackle. HEART: S1 and S2 audible. ABDOMEN: Soft. Nontender. No rebound. No guarding. NEUROLOGIC: The patient is awake and alert, able to communicate. LABORATORY EXAM: WBC 7.3, hemoglobin 11.5, hematocrit 34.1, platelet of 246. PT 16.1, INR 1.39. Chemistry is not available. ASSESSMENT: 1. Right thigh hematoma. 2. Status post aortic valve mechanical valve replacement. 3. Supratherapeutic INR. 4. History of gouty arthritis. PLAN: Give the patient 10 mg of Coumadin today. Give him dose of Lovenox and his INR is above 2. He will be discharged. Brayden Nelson MD
[2017-06-15 07:12] LABS: PROTHROMBIN TIME 18.3 SECONDS (9.4-12.5)
[2017-06-15 07:13] LABS: INR 1.58 (0.93-1.08)
[2017-06-15 07:42] VITALS: BP 142/93; PULSE 72; RESP 19; TEMP 98.4; O2SAT 97
[2017-06-15] MEDS: Febuxostat [Uloric] 40 MG (HOME MED) PO SCH (09:57)
[2017-06-15] MEDS: Enoxaparin 40 mg Syringe SC SCH (10:04)
--- NOTE | 2017-06-16 01:54 | DS ---
HISTORY OF PRESENT ILLNESS: The patient is 62 years old, seen and examined. Still has right thigh pain, but better than before. He is able to bend his knee. No nausea or vomiting. No fever. No chills. PHYSICAL EXAMINATION: VITAL SIGNS: He is afebrile, pulse 72, respirations 19, blood pressure 142/93. LUNGS: Bilateral good airflow. No rhonchi or crackle. HEART: S1 and S2 audible. ABDOMEN: Soft. Nontender. No rebound. No guarding. NEUROLOGIC: He is awake, alert, oriented, communicative. EXTREMITIES: Right leg, knee swelling has significant improved. Upper thigh and groin, he has purple bruise. LABORATORY EXAM: His PT is 18.3, INR 1.58. ASSESSMENT: 1. Right thigh hematoma. The patient was watched for compartment syndrome. 2. History of mechanical valve replacement for aortic stenosis. 3. History of gouty arthritis. PLAN: The patient will receive 8 mg of Coumadin today. He will resume his routine from tomorrow and he is advised that he must go to primary care physician on Saturday to have his PT/INR checked, so he is being discharged home on his regular medications that include colchicine, Coumadin, metoprolol and Prozac. Brayden Nelson MD
== END 2017-06-15 16:20 | disposition home or self-care (01) | DRG 605 ==
LOC: ED 17:30 → ERH 06-11 01:09 → 2RNO 06-11 05:10 → 3RNO 06-13 13:13
PROVIDERS: ADMIT Internal Medicine; ATTEND Internal Medicine
DX: S70.11XA Contusion of right thigh, initial encounter (principal); D68.9 Coagulation defect, unspecified; I35.0 Nonrheumatic aortic (valve) stenosis; I10 Essential (primary) hypertension; E78.5 Hyperlipidemia, unspecified; E78.00 Pure hypercholesterolemia, unspecified; Z79.01 Long term (current) use of anticoagulants; Z79.02 Long term (current) use of antithrombotics/antiplatelets; Z79.899 Other long term (current) drug therapy; Z86.73 Personal history of transient ischemic attack (TIA), and cerebral infarction without residual deficits; Z87.891 Personal history of nicotine dependence; Z95.2 Presence of prosthetic heart valve; M10.9 Gout, unspecified

== ENCOUNTER 2018-03-05 19:28 | Inpatient (IN) | payer MEDICARE, OTHER ==
[2018-03-05 20:30] LABS: ALT/SGPT 27 U/L (7-56); AST/SGOT 34 U/L (17-59); BLOOD UREA NITROGEN 24 mg/dL (7-21); CALCIUM 9.5 mg/dL (8.4-10.5); GFR NON-AFRICAN AMERICAN > 60
[2018-03-05 20:38] LABS: HEMOGLOBIN 15.8 g/dL (14.0-18.0); INR 2.56; MEAN CELL VOLUME 92.4 fl (80.0-105.0); MEAN CORPUSCULAR HEMOGLOBIN 31.4 pg (25.0-35.0); MEAN PLATELET VOLUME 9.8 fl (7.0-11.0); PARTIAL THROMBOPLASTIN TIME 40.5 Seconds (25.1-36.5); PROTHROMBIN TIME 29.8 SECONDS (9.4-12.5); RBC 5.03 10^6/uL (3.5-6.1); RED CELL DISTRIBUTION WIDTH 13.2 % (11.5-14.5); WHITE BLOOD COUNT 6.7 10^3/uL (4.5-11.0)
[2018-03-05 20:42] LABS: TROPONIN I < 0.01 ng/mL
--- NOTE | 2018-03-05 21:01 | ED PDOC ---
Arrival/HPI - General Chief Complaint: Syncope Time Seen by Provider: 03/05/18 19:31 Historian: Patient - History of Present Illness Narrative History of Present Illness (Text): 03/05/18 19:45 Yoel Duran is a 62 year old male, whose past medical history includes HTN, CVA,aortic valve replacement on Coumadin, who presents to the Emergency department complaining of recurrent syncopal episodes over the past 3 days. Patient's last syncopal episode was earlier this evening, witnessed by his . Patient apparently had not told anyone he was having spells of dizziness and passing out prior to tonight. Patient also reports occasional cough. Patient denies any headache, chest pain, shortness of breath, or any other complaints. Symptom Onset: Gradual Symptom Course: Unchanged Activities at Onset: Light Context: Home Past Medical History - Provider Review Nursing Documentation Reviewed: Yes - Infectious Disease Hx of Infectious Diseases: None - Tetanus Immunization Tetanus Immunization: Unknown - Cardiac Hx Cardiac Disorders: Yes (h/o aortic valve replacement) Hx Hypertension: Yes Other/Comment: Open heart surgery. Cardiac cath with stent placement. Valve replacement - Pulmonary Hx Respiratory Disorders: No - Neurological HX Cerebrovascular Accident: Yes - HEENT Hx HEENT Disorder: No - Renal Hx Renal Disorder: No - Endocrine/Metabolic Hx Endocrine Disorders: No - Hematological/Oncological Hx Blood Disorders: No Hx Blood Transfusions: No - Integumentary Hx Dermatological Disorder: No - Musculoskeletal/Rheumatological Hx Musculoskeletal Disorders: Yes (MILD L SIDED WEAKNESS) - Genitourinary/Gynecological Hx Genitourinary Disorders: No - Psychiatric Hx Psychophysiologic Disorder: No Hx Emotional Abuse: No Hx Physical Abuse: No Hx Substance Use: No - Surgical History Hx Cardiac Catheterization: Yes Hx Open Heart Surgery: Yes - Anesthesia Hx Anesthesia: Yes Hx Anesthesia Reactions: No Hx Malignant Hyperthermia: No - Suicidal Assessment Feels Threatened In Home Enviroment: No Family/Social History - Physician Review Nursing Documentation Reviewed: Yes Family/Social History: Unknown Family HX Smoking Status: Former Smoker Hx Alcohol Use: No Hx Substance Use: No Allergies/Home Meds Allergies/Adverse Reactions: Allergies No Known Allergies Allergy (Verified 04/18/16 23:43) Home Medications: Home Meds Medication Instructions Recorded Confirmed FLUoxetine [Prozac] 1 tab PO DAILY 03/05/18 03/05/18 Febuxostat [Uloric] 40 mg PO DAILY 03/05/18 03/05/18 Metoprolol Tartrate [Lopressor] 25 mg PO BID 03/05/18 03/05/18 Simvastatin [Zocor] 1 tab PO DAILY 03/05/18 03/05/18 Warfarin [Coumadin] 3 mg PO MWF 03/05/18 03/05/18 Warfarin [Coumadin] 6 mg PO DEAN 03/05/18 03/05/18 Warfarin [Coumadin] 6 mg PO TUE 03/05/18 03/05/18 Review of Systems - Physician Review All systems were reviewed & negative as marked: Yes - Review of Systems Constitutional: Normal. absent: Fevers Eyes: Normal ENT: Normal Respiratory: Normal. absent: SOB, Cough Cardiovascular: Syncope Gastrointestinal: Normal. absent: Abdominal Pain, Diarrhea, Nausea, Vomiting Genitourinary Male: Normal. absent: Dysuria, Frequency, Hematuria, Urinary Output Changes Musculoskeletal: Normal. absent: Back Pain, Neck Pain Skin: Normal. absent: Rash Neurological: Normal. absent: Headache, Dizziness Endocrine: Normal Hemo/Lymphatic: Normal Psychiatric: Normal Physical Exam Vital Signs Reviewed: Yes Vital Signs Temp Pulse Resp BP Pulse Ox 03/05/18 19:43 97.5 F L 67 18 142/86 96 Temperature: Afebrile Blood Pressure: Normal Pulse: Regular Respiratory Rate: Normal Appearance: Positive for: Well-Appearing, Non-Toxic, Comfortable Pain Distress: None Mental Status: Positive for: Alert and Oriented X 3 - Systems Exam Head: Present: Atraumatic, Normocephalic Pupils: Present: PERRL Extroacular Muscles: Present: EOMI Conjunctiva: Present: Normal Mouth: Present: Moist Mucous Membranes Neck: Present: Normal Range of Motion Respiratory/Chest: Present: Clear to Auscultation, Good Air Exchange. No: Respiratory Distress, Accessory Muscle Use Cardiovascular: Present: Regular Rate and Rhythm, Normal S1, S2. No: Murmurs Abdomen: No: Tenderness, Distention, Peritoneal Signs Back: Present: Normal Inspection Upper Extremity: Present: Normal Inspection. No: Cyanosis, Edema Lower Extremity: Present: Normal Inspection. No: Edema Neurological: Present: GCS=15, CN II-XII Intact, Speech Normal Skin: Present: Warm, Dry, Normal Color. No: Rashes Psychiatric: Present: Alert, Oriented x 3, Normal Insight, Normal Concentration Medical Decision Making ED Course and Treatment: 03/05/18 19:45 Impression: 62 year old male complaining of recurrent syncopal episode for past 3 days. Plan: -- CT Head w/o contrast -- EKG -- Chest X-ray -- Labs, cardiac enzymes -- Reassess and disposition Prior Visits: Notes and results from previous visits were reviewed. Progress Notes: Reviewed EKG, NSR at 61 bpm. Non-specific T wave changes. Prolonged QT. 03/05/18 21:39 Reviewed radiology, CT Head shows: The study shows normal configuration of sella turcica. There are no intra or ex tra-axial collections. There is no mass effect or midline shift. There is no evidence of hematoma formation. No hydrocephalus is present. No abnormal calcifications are noted. Changes of diffuse cerebellar and cerebral atrophy are noted with symmetrically dilated ventricles and cortical sulci. There are mild bilateral periventricular hypolucencies compatible with white matter ischemic disease. No significant other abnormalities are seen either in the posterior fossa or supratentorial compartment. There is mucosal thickening and partial opacification involving bilateral ethmoid air cells and maxillary sinuses consistent with chronic sinusitis. IMPRESSION: 1. Diffuse age-appropriate cerebellar and cerebral atrophy. 2. Bilateral periventricular hypolucencies compatible with chronic white matter ischemic disease. 3. Sinusitis as above. 4. No evidence of acute intracranial pathology. Electronically signed on Mar 05, 2018 8:53:22 PM EST by: Vimal King M.D., MBA Certified By ABR & [employer] Fellowship Trained MRI and CT Specialist Chest X-ray shows: LUNGS: Note is made of new confluent RUL opacity most compatible with pneumonia. Consider short term follow up study after the course of antibiotics. PLEURAL SPACES: No pleural effusion or pneumothorax. MEDIASTINUM: Cardiac size and mediastinal contours within normal limits. BONES: No aggressive appearing osseous lesion seen. MISCELLANEOUS: S/p median sternotomy and CABG. IMPRESSION: 1. S/p median sternotomy and CABG. 2. New confluent RUL opacity most compatible with pneumonia. Consider short term follow up study after the course of antibiotics. Electronically signed on Mar 05, 2018 9:18:47 PM EST by: Vimal King M.D., [place] Certified By [employer]BR & [facility] Fellowship Trained MRI and CT Specialist 03/05/18 22:[address] Nelson, who is aware and agrees with plan. Accepts pt in to her service. Pt will be admitted to telemetry for syncope and pneumonia. - Lab Interpretations Lab Results: PT 29.8 SECONDS (9.4-12.5) H 03/05/18 20:10 INR 2.56 03/05/18 20:10 APTT 40.5 Seconds (25.1-36.5) H 03/05/18 20:10 Troponin I < 0.01 ng/mL 03/05/18 20:10 Total Bilirubin 0.4 mg/dL (0.2-1.3) 03/05/18 20:10 AST 34 U/L (17-59) 03/05/18 20:10 ALT 27 U/L (7-56) 03/05/18 20:10 Alkaline Phosphatase 82 U/L (38-126) 03/05/18 20:10 Total Protein 7.9 g/dL (5.8-8.3) 03/05/18 20:10 Albumin 4.0 g/dL (3.0-4.8) 03/05/18 20:10 Globulin 3.9 gm/dL 03/05/18 20:10 Albumin/Globulin Ratio 1.0 (1.1-1.8) L 03/05/18 20:10 I have reviewed the lab results: Yes - RAD Interpretation Radiology Orders: 03/05/18 19:48 HEAD W/O CONTRAST [CT] Stat CHEST ONE VIEW [RAD] Stat School Transportation Director: ED Physician, Radiologist - EKG Interpretation Interpreted by ED Physician: Yes Type: 12 lead EKG - Scribe Statement The provider has reviewed the documentation as recorded by the Irvin Palacios Provider Scribe Attestation: All medical record entries made by the Scribe were at my direction and personally dictated by me. I have reviewed the chart and agree that the record accurately reflects my personal performance of the history, physical exam, medical decision making, and the department course for this patient. I have also personally directed, reviewed, and agree with the discharge instructions and disposition. Disposition/Present on Arrival - Present on Arrival Any Indicators Present on Arrival: No History of DVT/PE: No History of Uncontrolled Diabetes: No Urinary Catheter: No History of Decub. Ulcer: No History Surgical Site Infection Following: None - Disposition Have Diagnosis and Disposition been Completed?: Yes Diagnosis: Syncope, Pneumonia Disposition: HOSPITALIZED Disposition Time: 21:55 Patient Problems: Current Active Problems Problem Status Onset Pneumonia Acute Syncope Acute Condition: STABLE
[2018-03-05] MEDS ORDERED: Azithromycin 500MG/NS 250ml 500 MG/250 ML BAG IV STA (21:52)
[2018-03-05] MEDS ORDERED: cefTRIAXone 1 gm 1 GM/100 ML BAG IV STA (21:52)
[2018-03-05] MEDS ORDERED: Albuterol-Ipratrop 3 mg / 0.5 (3 ml) UD IH PRN (22:59)
[2018-03-05 23:19] VITALS: BMI 29.6
[2018-03-06] MEDS: Albuterol-Ipratrop 3 mg / 0.5 (3 ml) UD IH SCH ×2 (02:00→08:33)
[2018-03-06] MEDS ORDERED: Pantoprazole 40 mg EC Tab PO SCH (06:00)
--- NOTE | 2018-03-06 07:34 | RAD ---
Date of service: 03/05/2018 HISTORY: syncope COMPARISON: Frontal chest radiograph 06/10/2017. FINDINGS: LUNGS: Infiltrates identified at the mid right lung zone laterally possibly in the right lower lobe superior segment. Remaining lung mcnally appear clear otherwise bilaterally. Diminished pulmonary volumes identified bilaterally. PLEURA: No significant pleural effusion identified, no pneumothorax apparent. CARDIOVASCULAR: No aortic atherosclerotic calcification present. Normal cardiac size. No pulmonary vascular congestion. OSSEOUS STRUCTURES: Sternotomy wires reiterated. VISUALIZED UPPER ABDOMEN: Normal. OTHER FINDINGS: None. IMPRESSION: Probable right lower lobe infiltrate, superior segment.
[2018-03-06 08:17] VITALS: BP 169/93; PULSE 49; RESP 16; TEMP 98.3; O2SAT 100
[2018-03-06] MEDS ORDERED: Iohexol 350 MG/100 ML VIAL ONE (08:17)
[2018-03-06] MEDS ORDERED: Sodium Chloride 0.9% 1,000 ML IV STA (08:20)
--- NOTE | 2018-03-06 08:20 | CT ---
Date of service: 03/05/2018 PROCEDURE: CT HEAD WITHOUT CONTRAST. HISTORY: syncope COMPARISON: Noncontrast head CT 04/19/2016. TECHNIQUE: Axial computed tomography images were obtained through the head/brain without intravenous contrast. Radiation dose: Total exam DLP = 920.57 mGy-cm. This CT exam was performed using one or more of the following dose reduction techniques: Automated exposure control, adjustment of the mA and/or kV according to patient size, and/or use of iterative reconstruction technique. FINDINGS: HEMORRHAGE: No intracranial hemorrhage identified. BRAIN: Good corticomedullary differentiation is seen. Reiterated limited diffuse cerebral atrophy and chronic microangiopathy. No suspicious extra-axial fluid collection is identified and the midline brain anatomy appears grossly nonfocal as imaged. No mass effect identified. VENTRICLES: Unremarkable. No hydrocephalus. CALVARIUM: Unremarkable. PARANASAL SINUSES: Unremarkable as visualized. No significant inflammatory changes. MASTOID AIR CELLS: Unremarkable as visualized. No inflammatory changes. OTHER FINDINGS: None. IMPRESSION: Stable very limited age-related neuro degenerative findings. No intracranial hemorrhage or fracture appreciable.
[2018-03-06 08:21] LABS: ALBUMIN 3.7 g/dL (3.0-4.8); ALT/SGPT 31 U/L (7-56); AST/SGOT 30 U/L (17-59); BLOOD UREA NITROGEN 25 mg/dL (7-21); CALCIUM 9.1 mg/dL (8.4-10.5); GFR NON-AFRICAN AMERICAN > 60
--- NOTE | 2018-03-06 08:39 | CT ---
Date of service: 03/06/2018 PROCEDURE: CT HEAD WITHOUT CONTRAST. HISTORY: r/o cva COMPARISON: Unenhanced head CT 03/05/2018 8:29 a.m.. TECHNIQUE: Axial computed tomography images were obtained through the head/brain without intravenous contrast. Radiation dose: Total exam DLP = 3072.58 mGy-cm. This CT exam was performed using one or more of the following dose reduction techniques: Automated exposure control, adjustment of the mA and/or kV according to patient size, and/or use of iterative reconstruction technique. FINDINGS: Limitations: Motion artifacts degrade the exam despite multiple repeated series performed to attempt to overcome this problem. HEMORRHAGE: No intracranial hemorrhage. BRAIN: Good corticomedullary differentiation is seen. Reiterated mild diffuse cerebral atrophy and chronic microangiopathy. No suspicious extra-axial fluid collection is identified and the midline brain anatomy appears grossly nonfocal as imaged. No mass effect identified. VENTRICLES: Unremarkable. No hydrocephalus. CALVARIUM: Unremarkable. PARANASAL SINUSES: Unremarkable as visualized. No significant inflammatory changes. MASTOID AIR CELLS: Unremarkable as visualized. No inflammatory changes. OTHER FINDINGS: None. IMPRESSION: Stable age-related degenerative change are identified without acute intracranial findings once again. No intracranial hemorrhage, mass effect or cortical edema appreciable. Findings discussed with Nurse Hanley with written down and read back verification 03/06/2018 8:27 a.m.
--- NOTE | 2018-03-06 08:55 | CT ---
Date of service: 03/06/2018 PROCEDURE: CT Chest without contrast HISTORY: sob COMPARISON: No prior chest CT available for comparison. Comparison is made to prior chest radiograph 03/05/2018. TECHNIQUE: Contiguous axial images were obtained through the chest without intravenous contrast enhancement. Sagittal and coronal reconstructions were performed. Radiation dose: Total exam DLP = 823.65 mGy-cm. This CT exam was performed using one or more of the following dose reduction techniques: Automated exposure control, adjustment of the mA and/or kV according to patient size, and/or use of iterative reconstruction technique. FINDINGS: Median sternotomy. Prior aortic valve stent replacement and coronary stent deployment. LUNGS: Moderately dense infiltrate affects the right upper lobe perihilar and lateral subsegments with dependent atelectasis favored more so on the right than left lower lobes. No central airway lesion bilaterally. No left-sided infiltrate. MEDIASTINUM: In aneurysmal ascending thoracic aorta measures 4.6 cm greatest transverse dimension in this patient with prior aortic valve replacement with normal caliber main pulmonary artery. Aneurysm terminates at the mid arch which measures 3.1 cm. This dilatation terminates at the proximal arch. Normal sized heart. Main pulmonary artery unremarkable. No vascular congestion. No lymphadenopathy. Minimal thoracic aortic atherosclerosis without descending thoracic aneurysm evident. PLEURA: No pleural fluid. No pneumothorax. BONES: Sternotomy as per above. No fracture or destructive bony lesion appreciable. UPPER ABDOMEN: Grossly unremarkable. OTHER FINDINGS: None. IMPRESSION: Right upper lobe pneumonia. Prior aortic valve replacement with mildly aneurysmal ascending thoracic aorta terminating at the mid arch. No pleural or pericardial effusion or significant adenopathy lymphadenopathy.
[2018-03-06 08:59] LABS: ARTERIAL BLOOD GAS HCO3 24.6 mmol/L (21-28); ARTERIAL BLOOD GAS O2 SAT 99.8 % (95-98); ARTERIAL BLOOD GAS PCO2 33 mm/Hg (35-45); ARTERIAL BLOOD GAS PH 7.48 (7.35-7.45); ARTERIAL BLOOD GAS TCO2 25.6 mmol.L (22-28)
--- NOTE | 2018-03-06 09:24 | CT ---
Date of service: 03/06/2018 PROCEDURE: CT Angiography of the neck with contrast HISTORY: r/o stroke COMPARISON: None. TECHNIQUE: Contiguous axial images of the neck were obtained from the level of the skull-base to the superior mediastinum in the arteriographic phase of enhancement. Coronal and sagittal reformats or also generated. IV contrast dose: Radiation dose: Total exam DLP = 646.04 mGy-cm. This CT exam was performed using one or more of the following dose reduction techniques: Automated exposure control, adjustment of the mA and/or kV according to patient size, and/or use of iterative reconstruction technique. FINDINGS: RIGHT CAROTID ARTERIES: There is a calcified plaque in the proximal right internal carotid that produces a moderate degree of stenosis. LEFT CAROTID ARTERIES: Minimal calcified plaque in the internal carotid without stenosis VERTEBRAL ARTERIES: Right Vertebral Artery: Normal. Left Vertebral Artery: Normal. OTHER FINDINGS: no aortic atherosclerotic calcification or mural plaque present. There is dilatation of the ascending aorta measuring 4.6 cm. There is a right upper lobe infiltrate. This was reported on the CT of the chest performed on the same day. IMPRESSION: There is a calcified plaque in the proximal right internal carotid that produces a moderate degree of stenosis. CT Angiography of the Brain. HISTORY: r/o stroke COMPARISON: None available. TECHNIQUE: CT angiography of the intracranial arteries was performed. Coronal and sagittal maximum intensity projection reformated images were generated. Radiation dose: Total exam DLP = 646.04 mGy-cm. This CT exam was performed using one or more of the following dose reduction techniques: Automated exposure control, adjustment of the mA and/or kV according to patient size, and/or use of iterative reconstruction technique. FINDINGS: INTERNAL CEREBRAL ARTERIES: Unremarkable. The skull base, petrous, cavernous and supraclinoid segments are bilaterally widely patent. ANTERIOR CEREBRAL ARTERIES: Unremarkable. A1 and A2 segments are widely patent. Smaller distal branches unremarkable, as visualized. MIDDLE CEREBRAL ARTERIES: Unremarkable. M1 and M2 segments are widely patent. Perisylvian branches grossly symmetric. POSTERIOR CIRCULATION: Basilar Artery: High-grade stenosis or short segment occlusion at the junction of the vertebrals and basilar Distal Vertebral Arteries: Calcified left vertebral with areas of mild stenosis. Posterior Cerebral Arteries: Unremarkable. Posterior Inferior Cerebellar Arteries: Unremarkable. ANEURYSM/ VASCULAR MALFORMATIONS: None. OTHER FINDINGS: None. 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
[2018-03-06 09:25] LABS: INR 2.81
[2018-03-06 09:48] LABS: TROPONIN I 0.01 ng/mL
[2018-03-06] MEDS ORDERED: Non Formulary Medication (Simvastatin [Zocor] 1 TAB) PO SCH (10:00)
[2018-03-06] MEDS ORDERED: cefTRIAXone 1 gm 1 GM/100 ML BAG IVPB SCH (10:00)
[2018-03-06] MEDS ORDERED: Azithromycin 500MG/NS 250ml 500 MG/250 ML BAG IVPB SCH (10:00)
--- NOTE | 2018-03-06 10:40 | CP.PCM.PCO ---
Physician Communication Note - Physician Communication Note Physician Communication Note: reviewed cta of head:basilar stenosis,transfer to [facility] for interve
--- NOTE | 2018-03-06 19:54 | HP ---
DATE OF EXAM: 03/06/2018 HISTORY OF PRESENT ILLNESS: The patient is a 62-year-old male, who came to Emergency Room. According to , he has multiple falls. He felt very dizzy as if he is going to pass out, that happened almost couple of times in last 3 days. Same thing happened yesterday evening and witnessed. Before witnessed, he did not tell anybody as he did not want to go to the hospital. Denies any fever or chills. No history of nausea or vomiting. He had scanty cough, but no fever or chills. Complained of feeling dizzy and lightheaded at times. PAST MEDICAL HISTORY: Significant for hypertension, history of CVA, aortic valve replacement on Coumadin, status post open heart surgery and had aortic valve replacement, hyperlipidemia, and history of gout. ALLERGIES: HE IS NOT ALLERGIC TO ANY MEDICATIONS. MEDICATIONS AT HOME: He is on; 1. Coumadin. 2. Simvastatin 40 mg daily. 3. Metoprolol 25 twice a day. 4. 40 mg daily. 5. Prozac 20 mg daily. SOCIAL HISTORY: He was a heavy smoker, but quit couple of years ago. PHYSICAL EXAMINATION: GENERAL: He is awake, alert, oriented, sitting on bed. VITAL SIGNS: The patient is afebrile, pulse is 72, respiration 18, and blood pressure 153/105. LUNGS: Bilateral fair airflow. No rhonchi or crackles. HEART: S1 and S2 audible. ABDOMEN: Soft and nontender. No rebound, no guarding. NEUROLOGIC: The patient is awake, alert and oriented, communicative, able to move all extremities. LABORATORY DATA: WBC 6.7, hemoglobin 15.8, hematocrit 46.5, and platelets 309. PT 33.0, INR 2.81. Chemistry, sodium 140, potassium 4.6, chloride 103, CO2 33, BUN 25, creatinine 1.0, and blood sugar of 86. Procalcitonin 0.05. CT scan of the head done last night that was stable age-relative degenerative changes without acute intracranial abnormality. He had CT scan of the chest done that shows right upper lobe pneumonia, prior aortic valvular replacement, mildly aneurysmal ascending thoracic aorta. ASSESSMENT AND PLAN: This morning I got a call. Code stroke was called because patient was feeling foggy. His pupil was dilated and fixed. CT angiogram was done that shows high grade stenosis, short segment occlusion at the junction of vertebral and basilar artery. Initially, the patient was admitted for IV antibiotics and he was maintained on Coumadin after his episode of blurry vision and finding of CT angio, Code stroke was called and the neurologist reached out to [facility]. The patient was transferred earlier this morning to [facility] for possible angioplasty of vertebral artery stenosis. Brayden Nelson MD
--- NOTE | 2018-03-06 20:26 | CARD ---
APPROVED REPORT Date of service: 03/06/2018 EKG Measurement Heart [id number] <Conclusion> Sinus bradycardia with premature atrial complexes Nonspecific T wave abnormality Prolonged QT Abnormal ECG
--- NOTE | 2018-03-06 20:30 | CARD ---
APPROVED REPORT Date of service: 03/05/2018 EKG Measurement Heart [id number] <Conclusion> Normal sinus rhythm Nonspecific T wave abnormality, consider anterior wall ischemia Prolonged QT Abnormal ECG
== END 2018-03-06 11:54 | disposition short-term general hospital (02) | DRG 195 ==
LOC: ED 19:28 → ERH 21:53 → 2RSO 22:52
PROVIDERS: ADMIT Internal Medicine; ATTEND Internal Medicine
DX: J18.9 Pneumonia, unspecified organism (principal); I65.09 Occlusion and stenosis of unspecified vertebral artery; I10 Essential (primary) hypertension; E78.5 Hyperlipidemia, unspecified; M10.9 Gout, unspecified; Z86.73 Personal history of transient ischemic attack (TIA), and cerebral infarction without residual deficits; Z79.01 Long term (current) use of anticoagulants; Z95.2 Presence of prosthetic heart valve; Z95.1 Presence of aortocoronary bypass graft; Z87.891 Personal history of nicotine dependence